=== PATIENT | male | born 1985 | race Caucasian/White ===

== ENCOUNTER 2017-10-06 06:48 | Emergency (ER) | payer OTHER ==
[~2017-10-06] VITALS: Ht 172.7 cm; Wt 61.2 kg
[~2017-10-06 06:48] MED LIST: Bactrim Ds Tab1 EACH PO; Flomax0.4 MG PO; Keflex500 MG PO; Norco 10-325 T1 EACH PO; Norco 5-325 Ta1 EACH PO
[2017-10-06] MEDS ORDERED: HYDHCL25 PO (08:09)
[2017-10-06] MEDS ORDERED: Triamcinolone A15 GM TOP (08:09)
== END 2017-10-06 09:15 | disposition home or self-care (01) ==
LOC: ER 06:48
DX: L23.7 Allergic contact dermatitis due to plants, except food (principal); Z88.0 Allergy status to penicillin; F17.200 Nicotine dependence, unspecified, uncomplicated
CPT/HCPCS: 96372; 99283-25; J3301